=== PATIENT | female | born 1995 | race Caucasian/White ===

== ENCOUNTER 2018-07-19 15:38 | Inpatient (IN) | payer BC ==
[2018-08-16] MEDS ORDERED: DINOPROSTONE 10 MG VAGINAL INSERT.SR PV ONE (20:00)
[2018-08-16] MEDS ORDERED: DINOPROSTONE 10 MG VAGINAL INSERT.SR ONE (20:08)
[2018-08-16 20:24] LABS: ABSOLUTE LYMPHOCYTES (AUTO) 1.4 10^3/uL (0.5-4.7); ABSOLUTE MONOCYTES (AUTO) 0.5 10^3/uL (0.1-1.4); ABSOLUTE NEUT (AUTO) 8.6 10^3/uL (1.7-8.2); BASOPHILS % (AUTO) 0.2 % (0-2); EOSINOPHILS % (AUTO) 0.1 % (0-6); HEMATOCRIT 34.4 % (36.0-47.0); HEMOGLOBIN 11.6 g/dL (12.0-15.5); MEAN CORPUSCULAR HEMOGLOBIN 31.8 pg (27.0-33.4); MEAN CORPUSCULAR HGB CONC 33.7 g/dL (32.0-36.0); MEAN CORPUSCULAR VOLUME 95 fl (80-97); MONOCYTES % (AUTO) 4.5 % (3-13); PLATELET COUNT 165 10^3/uL (150-450); RED BLOOD COUNT 3.64 10^6/uL (3.72-5.28); RED CELL DISTRIBUTION WIDTH 18.2 % (11.5-14.0); SEGMENTED NEUTROPHILS % (AUTO) 82.2 % (42-78); TOTAL CELLS COUNTED % (AUTO) 100 %; WHITE BLOOD COUNT 10.4 10^3/uL (4.0-10.5)
[2018-08-16 22:08] LABS: APPEARANCE,URINE CLEAR; BILIRUBIN,URINE NEGATIVE (NEGATIVE); COLOR,URINE STRAW; GLUCOSE, URINE NEGATIVE (NEGATIVE); KETONES,URINE NEGATIVE (NEGATIVE); LEUKOCYTE ESTERASE,URINE NEGATIVE (NEGATIVE); NITRITE,URINE NEGATIVE (NEGATIVE); PROTEIN,URINE NEGATIVE (NEGATIVE); URINE SPECIFIC GRAVITY 1.005; UROBILINOGEN,URINE NEGATIVE mg/dL (<2.0)
[2018-08-16 22:28] LABS: URINE AMPHETAMINES SCREEN NEGATIVE; URINE BARBITURATES SCREEN NEGATIVE; URINE BENZODIAZEPINES SCREEN NEGATIVE; URINE COCAINE SCREEN NEGATIVE; URINE MARIJUANA (THC) SCREEN NEGATIVE; URINE METHADONE SCREEN NEGATIVE; URINE PHENCYCLIDINE SCREEN NEGATIVE
[2018-08-17] MEDS ORDERED: RINGERS SOLUTION,LACTATED 1,000 ML IV PRN (06:43)
--- NOTE | 2018-08-17 09:12 | L&D Progress Notes ---
PROGRESS NOTES Datetime Report Generated by CPN: 08/17/2018 09:12 PROGRESS NOTE Impression Other: IUP @ 41w Procedures: Sterile Vag Exam Plan: Continue Present Management; Induction Informed Consent Obtained: Vaginal Delivery; Induction of Labor; Risks, Benefits and Alternatives Discussed Vital Signs : Reviewed; Within Normal Limits Comment: S: pt. comfortable after cervidil, reports mild cramping O: VSS, Cat I tracing, cervix as stated A: IUP @ 41w IOL for post term-stable, progressing P: continue induction of labor, will start pitocin at 0930. Reviewed plan of care with patient and who asked questions and verbalized understanding. LAST VAGINAL EXAM-NURSING Dilitation: 2.5 Dilitation: 1.5 Effacement: 70 Effacement: 70 Station: -1 Station: -3 MEMBRANES Membranes: Intact FETUS A Monitoring: External US Variability: Moderate 6-25bpm Decelerations: None FHR Category: Category I SIGNATURE SIGNATURE: [id number] Assignment: Cleopatra Garcia, MD Signature: with User ID: [email or web address] : with User ID: [email or web address]
[2018-08-17] MEDS ORDERED: OXYTOCIN/NORMAL SALINE 20 UNIT/1,000 ML RTUINJ IV PRN ×2 (09:30→19:08)
[2018-08-17] MEDS ORDERED: OXYTOCIN/NORMAL SALINE 20 UNIT/1,000 ML RTUINJ ONE (09:33)
--- NOTE | 2018-08-17 14:01 | Admission Physical ---
Datetime Report Generated by CPN: 08/17/2018 14:00 CURRENT ADMISSION Hx Assessment: The History has been Reviewed and is Current Chief Complaint: Scheduled Induction of Labor Indication for Induction: Post Dates Admit Impression : Postterm, Intrauterine Admit Plan: Admit to Unit; Initiate Labor Induction Protocol ALLERGIES Medication Allergies: No Medication Allergies: No Known Allergies (08/16/2018) Latex: No Latex Allergies OBSTETRICAL HISTORY EDC: 08/10/2018 00:00 : 1 Para: 0 Term: 0 : 0 SAB: 0 IAB: 0 Ectopic: 0 Livin Cesareans: 0 VBACs: 0 Multiple Births: 0 Gestational Diabetes: No Rh Sensitization: No Incompetent Cervix: No SEAN: No Infertility: No ART Treatment: No Uterine Anomaly: No IUGR: No Hx Previous C/S: No Macrosomia: No Hx Loss/Stillborn: No PIH: No Hx : No Placenta Previa/Abruption: No Depression/PP Depression: No PTL/PROM: No Post Hemorrhage: No Current Procedures: Ultrasound; NST Obstetrical History Comments: G1- current SEE RECORDS Alcohol: No Marijuana : No Cocaine: No Other Illicit Drugs: No Cigarettes: Never Smoker. [id number] MEDICAL HISTORY Diabetes: No Blood Transfusion: No Pulmonary Disease (Asthma, TB): No Breast Disease: No Hypertension: No Data Conversion Operator Surgery: No Heart Disease: No Hosp/Surgery: Yes Autoimmune Disorder: No Anesthetic Complications: No Kidney Disease: No Abnormal Pap Smear: No Neuro/Epilepsy: No Psychiatric Disorders: No Other Medical Diseases: No Hepatitis/Liver Disease: No Significant Family History: No Varicosities/Phlebitis: No Trauma/Violence : No Thyroid Dysfunction: No Medical History Comments: open heart surgery at 4 days old INFECTIOUS HISTORY Gonorrhea: No Genital Herpes: No Chlamydia: No Tuberculosis: No Syphilis: No Hepatitis: No HIV/AIDS Exposure: No Rash or Viral Illness: No HPV: No PHYSICAL EXAM General: Normal HEENT: Deferred Neurologic: Deferred Thyroid: Deferred Heart: Normal Lungs: Normal Breast: Deferred Back: Deferred Abdomen: Normal Genitourinary Exam: Normal Extremities: Normal DTRs: Normal Pelvic Type: Adequate Vital Signs: Reviewed; Within Normal Limits VAGINAL EXAM Contraction Comments: 2-4 MEMBRANES Membranes: Intact FETUS A EGA: 41.0 Monitoring: External US FHR Category: Category I Presentation: Vertex Admit Comment: 22yo @ 41wga admitted into L_D last night for IOL post term. 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 Pt is Rubella immune, GBs neg, blood type A positive. Pt. had cervidil last night and was ready for pitocin this am. Pitocin was started at that time. Pt. tolerating induction without problems and denies any concerns at this time. PLANS FOR LABOR AND DELIVERY Labor and Delivery: None Pain Management: Natural Feeding Preference: Formula Benefit of Breast Feed Discussed: Yes Circumcision: N/A INFORMED CONSENT Informed Consent Obtained: Vaginal Delivery; Induction of Labor; Risks, Benefits and Alternatives Discussed Assignment: Cleopatra Garcia MD Signature: with User ID: Loretta : with User ID: [email or web address]
[2018-08-17] MEDS ORDERED: EPHEDRINE SULFATE INJ 50 MG/1 ML AMPULE ONE (16:18)
[2018-08-17] MEDS ORDERED: BUPIVACAINE HCL 0.5 % INJ/PF 30 ML SDV ONE (16:19)
[2018-08-17] MEDS ORDERED: FENTANYL/BUPIVACAINE/NS/PF 300 MCG/150 ML RTUINJ EPI ONE (16:19)
[2018-08-17] MEDS ORDERED: MISOPROSTOL 0.2 MG TABLET ONE (19:04)
[2018-08-17] MEDS ORDERED: LIDOCAINE 1% INJ-PF (10 MG/ML) 30 ML SDV ONE (19:04)
[2018-08-17] MEDS ORDERED: DIPH/PERTUSS(ACELL)/TETANUS VAC/PF 0.5 ML SYR (>=10YO) IM PRN (19:08)
[2018-08-17] MEDS ORDERED: PROMETHAZINE HCL 25 MG TABLET PO PRN (19:08)
[2018-08-17] MEDS ORDERED: ZOLPIDEM TARTRATE 5 MG TABLET PO PRN (19:08)
[2018-08-17] MEDS ORDERED: NA PHOS,M-B/NA PHOS,DI-BA (ADULT) 133 ML ENEMA PR PRN (19:08)
[2018-08-17] MEDS ORDERED: BENZOCAINE/MENTHOL AEROSOL SPRAY 56 ML TOP PRN (19:08)
[2018-08-17] MEDS ORDERED: MAGNESIUM HYDROXIDE SUSP 30 ML UDCUP PO PRN (19:08)
[2018-08-17] MEDS ORDERED: ACETAMINOPHEN 650 MG SUPP.RECT PR PRN (19:08)
[2018-08-17] MEDS ORDERED: PSEUDOEPHEDRINE HCL 30 MG TABLET PO PRN (19:08)
[2018-08-17] MEDS ORDERED: DIBUCAINE 1% OINTMENT 28 GM TP PRN (19:08)
[2018-08-17] MEDS ORDERED: ACETAMINOPHEN WITH CODEINE #3 TABLET PO PRN ×2 (19:08)
[2018-08-17] MEDS ORDERED: DIPHENHYDRAMINE HCL 25 MG CAPSULE PO PRN (19:08)
[2018-08-17] MEDS ORDERED: MEASLES,MUMPS&RUBELLA VACC/PF 0.5 ML VIAL SUBCUT PRN (19:08)
[2018-08-17] MEDS ORDERED: PROMETHAZINE HCL INJ 25 MG/1 ML VIAL IV PRN (19:08)
[2018-08-17] MEDS ORDERED: PROMETHAZINE HCL 25 MG SUPP.RECT PR PRN (19:08)
[2018-08-17] MEDS ORDERED: GLYCERIN/WITCH HAZEL LEAF 1 EACH MED..PAD TP PRN (19:08)
[2018-08-17] MEDS ORDERED: IBUPROFEN 800 MG TABLET ONE (21:44)
[2018-08-17] MEDS: IBUPROFEN 800 MG TABLET PO SCH (21:46)
--- NOTE | 2018-08-17 22:23 | Delivery Summary ---
Del Sum A-C Datetime Report Generated by CPN: 08/17/2018 22:22 DELIVERY PERSONNEL DELIVERY PERSONNEL: [id number] Delivery Doctor:: Cleopatra Garcia MD Labor and Delivery Nurse:: Yi Esqueda, body design checker Nurse:: Leigh Ann Epstein, CLITFON Counter Intelligence Agent/OFFICE CLERK ASSISTANT: Jed Ertel, OFFICE CLERK ASSISTANT MATERNAL INFORMATION Delivery Anesthesia: Epidural Medications After Delivery: Pitocin Drip 20 Units/1000ml NSS Maternal Complications: None LABOR SUMMARY EDC: 08/10/2018 00:00 No. Babies in Womb: 1 Attempted: No Labor Anesthesia: Epidural LABOR INFORMATION Reason for Induction: Post Dates Onset of Labor: 08/17/2018 16:17 Complete Dilatation: 08/17/2018 18:57 Cervical Ripening Agents: Cervidil Oxytocin: Induction Group B Beta Strep: NEGATIVE Antibiotics # of Doses: N/A Antibiotics Time of Last Dose: N/A Name of Antibiotic Given: N/A Steroids Given: None Reason Steroids Not Administered: Not Applicable MEMBRANES Membranes Rupture Method: Spontaneous Rupture of Membranes: 08/17/2018 15:07 Length of Rupture (hr): 4.82 Amniotic Fluid Color: Clear Amniotic Fluid Amount: Small Amniotic Fluid Odor: Normal STAGES OF LABOR Stage 1 hr: 2 Stage 1 min: 40 Stage 2 hr: 0 Stage 2 min: 59 Stage 3 hr: 0 Stage 3 min: 5 Total Time in Labor hr: 3 Total Time in Labor min: 44 VAGINAL DELIVERY Episiotomy: None Laceration #1: Vaginal Laceration Extension #1: N/A Laceration #2: Vaginal Laceration Extension #2: N/A Laceration #3: None Laceration Extension #3: N/A Laceration Repair: Yes Laceration Repair Note: repair with 3-0 chromic suture Sponge Count Correct: Yes; Vaginal Sweep Performed Sharps Count Correct: Yes CSECTION DELIVERY Primary Indication: N/A Secondary Indication: N/A CSection Incidence: N/A Labor: N/A Elective: N/A CSection Incision: N/A BABY A INFORMATION Delivery Date/Time: 08/17/2018 19:56 Method of Delivery: Vaginal Born in Route : No : N/A Forceps: N/A Vacuum Extraction: N/A Shoulder Dystocia : No PRESENTATION/POSITION BABY A Presentation: Cephalic Cephalic Presentation: Vertex Vertex Position: Right Occipital Anterior Breech Presentation: N/A PLACENTA INFORMATION BABY A Placenta Delivery Time : 08/17/2018 20:01 Placenta Method of Delivery: Spontaneous Placenta Status: Delivered SCORES BABY A Heart Rate 1 min: >100 bpm Resp Effort 1 min: Good Cry Reflex Irritability 1 min: Cough or Sneeze or Pulls Away Muscle Tone 1 min: Active Motion Color 1 min: Blue/Pale SCORE 1 MIN: 8 Heart Rate 5 min: >100 bpm Resp Effort 5 min: Good Cry Reflex Irritability 5 min: Cough or Sneeze or Pulls Away Muscle Tone 5 min: Active Motion Color 5 min: Body [place], Extremities Blue SCORE 5 MIN: 9 INFORMATION BABY A Gestational Age at Delivery: 41.0 Gestational Status: Late Term- 41- 41.6 Weeks Outcome : Liveborn Condition : Stable Sex: Female IDENTIFICATION BABY A Verification Date/Time: 08/17/2018 20:10 ID Band Number: [id number] Mother's Name Verified: Yes RN Verifying : CBeatrice Esqueda, RN R. Hirael, OFFICE CLERK ASSISTANT WEIGHT/LENGTH BABY A Infant Birthweight (gm): 3407 Infant Weight (lb): 7 Infant Weight (oz): 8 Infant Length (in): 20.00 Infant Length (cm): 50.80 CORD INFORMATION BABY A No. Cord Vessels: 3 Nuchal Cord : N/A Nuchal Cord- Other: left compound hand Cord Blood Taken: Yes-For Storage (Mom's Blood type +) Suction: Mouth; Nose ASSESSMENT BABY A Complications: None Physical Findings at Delivery: Within Normal Limits Skin to Skin: Yes Transferred To: Remains with Mother BABY B INFORMATION : N/A SIGNATURES Signature: with User ID: Donald
[2018-08-17] MEDS: FAMOTIDINE 20 MG TABLET PO SCH (23:06)
[2018-08-18] MEDS: IBUPROFEN 800 MG TABLET PO SCH ×3 (05:19→22:37)
[2018-08-18 08:00] LABS: HEMATOCRIT 30.6 % (36.0-47.0); HEMOGLOBIN 10.3 g/dL (12.0-15.5); MEAN CORPUSCULAR HGB CONC 33.8 g/dL (32.0-36.0); MEAN CORPUSCULAR VOLUME 95 fl (80-97); PLATELET COUNT 160 10^3/uL (150-450); RED BLOOD COUNT 3.23 10^6/uL (3.72-5.28); WHITE BLOOD COUNT 12.8 10^3/uL (4.0-10.5)
[2018-08-18] MEDS: DOCUSATE SODIUM 100 MG CAPSULE PO SCH ×2 (09:44→18:55)
[2018-08-18] MEDS: PRENATAL VITAMIN W DHA CAPSULE PO SCH (09:44)
[2018-08-18] MEDS: FAMOTIDINE 20 MG TABLET PO SCH ×2 (09:44→22:37)
[2018-08-18] MEDS: SENNOSIDES/DOCUSATE 8.6-50 MG 1 EACH TABLET PO SCH (09:44)
[2018-08-18] MEDS: FERROUS SULFATE 325 MG TABLET PO SCH ×2 (09:44→18:55)
--- NOTE | 2018-08-18 09:50 | PDOC PROGRESS REPORT ---
Subjective-OB Progress Note for:: 08/18/18 Physical Exam (OB) Vital Signs: Temp Pulse Resp BP Pulse Ox 98.1 F 75 17 106/62 98 08/18/18 07:56 08/18/18 07:56 08/18/18 07:56 08/18/18 07:56 08/18/18 07:56 Intake & Output 08/17/18 08/18/18 08/19/18 06:59 06:59 06:59 Weight 71.8 kg - Lochia Lochia Amount: Small 10-25 ml - Abdomen Description: Soft, Round Hernia Present: No Bowel Sounds: Normoactive Flatus Presence: Present Stool: No Objective-Diagnostic Laboratory: 08/18/18 07:17 08/18/18 07:17 WBC 12.8 H RBC 3.23 L Hgb 10.3 L Hct 30.6 L MCV 95 MCH 32.0 MCHC 33.8 RDW 18.0 H Plt Count 160
[2018-08-19] MEDS: IBUPROFEN 800 MG TABLET PO SCH (05:22)
[2018-08-19 08:41] VITALS: BP 109/63
[2018-08-19] MEDS: DOCUSATE SODIUM 100 MG CAPSULE PO SCH (09:36)
[2018-08-19] MEDS: SENNOSIDES/DOCUSATE 8.6-50 MG 1 EACH TABLET PO SCH (09:36)
[2018-08-19] MEDS: PRENATAL VITAMIN W DHA CAPSULE PO SCH (09:36)
[2018-08-19] MEDS: FAMOTIDINE 20 MG TABLET PO SCH (09:36)
[2018-08-19] MEDS: FERROUS SULFATE 325 MG TABLET PO SCH (09:36)
--- NOTE | 2018-08-19 10:13 | PDOC DISCHARGE SUMMARY ---
Final Diagnosis Discharge Date: 08/19/18 - Final Diagnosis (1) Delivery normal Is this a current diagnosis for this admission?: Yes (2) History of transposition of great vessels Is this a current diagnosis for this admission?: Yes Discharge Data - Discharge Medication Home Medications: 95/Iron Fum/Folic/Dha [ + Dha Combo Pack] 1 each PO DAILY 08/16/18 Reason(s) for Admission: Induction of Labor Procedures: NST Intrapartum Procedure(s): Spontaneous Vaginal Delivery Complication(s): Laceration-Vaginal Laceration-Degree: 1st - Diagnosis Test Laboratory: Temp Pulse Resp BP Pulse Ox 98.4 F 82 17 109/63 99 08/19/18 08:06 08/19/18 08:06 08/19/18 08:06 08/19/18 08:06 08/19/18 08:06 08/16/18 08/16/18 08/18/18 19:22 20:10 07:17 RBC 3.64 L 3.23 L Hgb 11.6 L 10.3 L Hct 34.4 L 30.6 L Urine Opiates Screen NEGATIVE - Discharge information/Instructions Discharge Activity: Balance Activity w/Rest, Pelvic Rest Discharge Diet: Regular Disposition: HOME, SELF-CARE Follow up with: [facility] in: 3, Weeks
== END 2018-08-19 14:22 | disposition home or self-care (01) | DRG 807 ==
LOC: LR 08-16 19:12 → 2S 08-17 21:55
PROVIDERS: ADMIT Obstetrics & Gynecology; ATTEND Obstetrics & Gynecology
PROC: 10E0XZZ Delivery of Products of Conception, External Approach (ICD-10-PCS; principal; 2018-08-17)
PROC: 3E0P7VZ Introduction of Hormone into Female Reproductive, Via Natural or Artificial Opening (ICD-10-PCS; 2018-08-17)
PROC: 3E033VJ Introduction of Other Hormone into Peripheral Vein, Percutaneous Approach (ICD-10-PCS; 2018-08-17)
PROC: 4A1HXCZ Monitoring of Products of Conception, Cardiac Rate, External Approach (ICD-10-PCS; 2018-08-17)
DX: O48.0 Post-term pregnancy (principal); Z37.0 Single live birth; O32.6XX0 Maternal care for compound presentation, not applicable or unspecified; Z3A.41 41 weeks gestation of pregnancy; Z87.74 Personal history of (corrected) congenital malformations of heart and circulatory system
CPT/HCPCS: 36415; 80307; 81005; 85025; 85027; 86592; 86850; 86900; 86901; J2590; J3010; J3490

== ENCOUNTER 2018-08-20 16:45 | Emergency (ER) | payer BC ==
[2018-08-20] MEDS ORDERED: RINGERS SOLUTION,LACTATED 1,000 ML IV ONE (17:36)
--- NOTE | 2018-08-20 17:37 | ER Document Report ---
ED Medical Screen (RME) - General Chief Complaint: Shortness Of Breath Stated Complaint: DIZZY/HEADACHE Time Seen by Provider: 08/20/18 17:35 Notes: 22 years old female delivered a baby 3 days ago, presents today with general malaise weakness tiredness and dizziness. Not breast-feeding, undergoing some depression. TRAVEL OUTSIDE OF THE [place] IN LAST 30 DAYS: No - Related Data Allergies/Adverse Reactions: No Known Allergies Allergy (Verified 08/20/18 16:45) Past Medical History - Social History Frequency of alcohol use: None Drug Abuse: None Renal/ Medical History: Denies: Hx Peritoneal Dialysis Past Surgical History: Reports: Hx Cardiac Surgery - as an ( open heart) - Immunizations Immunizations up to date: Yes Hx Diphtheria, Pertussis, Tetanus Vaccination: No Physical Exam - Vital signs Vitals: Temp Pulse Resp BP Pulse Ox 99.2 F 82 14 137/74 H 100 08/20/18 16:47 08/20/18 16:47 08/20/18 16:47 08/20/18 16:47 08/20/18 16:47 Course - Vital Signs Vital signs: Temp Pulse Resp BP Pulse Ox 99.2 F 82 14 137/74 H 100 08/20/18 16:47 08/20/18 16:47 08/20/18 16:47 08/20/18 16:47 08/20/18 16:47 Doctor's Discharge - Discharge Referrals: JANKI SMALLWOOD MD [Primary Care Provider] - Follow up as needed
[2018-08-20 18:30] LABS: ABSOLUTE EOSINOPHILS # (AUTO) 0.1 10^3/uL (0.0-0.6); ABSOLUTE LYMPHOCYTES (AUTO) 1.6 10^3/uL (0.5-4.7); ABSOLUTE MONOCYTES (AUTO) 0.4 10^3/uL (0.1-1.4); ABSOLUTE NEUT (AUTO) 7.6 10^3/uL (1.7-8.2); BASOPHILS % (AUTO) 0.4 % (0-2); EOSINOPHILS % (AUTO) 1.2 % (0-6); HEMATOCRIT 38.3 % (36.0-47.0); LYMPHOCYTES % (AUTO) 16.5 % (13-45); MEAN CORPUSCULAR HEMOGLOBIN 31.7 pg (27.0-33.4); MEAN CORPUSCULAR HGB CONC 33.3 g/dL (32.0-36.0); MEAN CORPUSCULAR VOLUME 95 fl (80-97); MONOCYTES % (AUTO) 4.4 % (3-13); PLATELET COUNT 217 10^3/uL (150-450); RED BLOOD COUNT 4.02 10^6/uL (3.72-5.28); RED CELL DISTRIBUTION WIDTH 18.9 % (11.5-14.0); SEGMENTED NEUTROPHILS % (AUTO) 77.5 % (42-78); TOTAL CELLS COUNTED % (AUTO) 100 %; WHITE BLOOD COUNT 9.8 10^3/uL (4.0-10.5)
[2018-08-20 18:37] LABS: HEMOGLOBIN 12.8 g/dL (12.0-15.5)
--- NOTE | 2018-08-20 19:05 | ER Document Report ---
ED General - General Chief Complaint: Shortness Of Breath Stated Complaint: DIZZY/HEADACHE Time Seen by Provider: 08/20/18 17:35 Notes: Patient is a 22-year-old female who presents emergency department with a chief complaint of a headache, dizziness, feeling weak, shortness of breath on exertion. She is 3 days and was anemic during her . She states she is still taking her iron pills. Her delivery was a vaginal delivery and she had an epidural. When asked if she has had this mold dresser, she said a little bit. She states her headache really is not that bad. TRAVEL OUTSIDE OF THE [place] IN LAST 30 DAYS: No - Related Data Allergies/Adverse Reactions: No Known Allergies Allergy (Verified 08/20/18 16:45) Past Medical History - Social History Smoking Status: Never Smoker Frequency of alcohol use: None Drug Abuse: None Family History: Reviewed & Not Pertinent Patient has suicidal ideation: No Patient has homicidal ideation: No Renal/ Medical History: Denies: Hx Peritoneal Dialysis Past Surgical History: Reports: Hx Cardiac Surgery - as an ( open heart) - Immunizations Immunizations up to date: Yes Hx Diphtheria, Pertussis, Tetanus Vaccination: No Review of Systems - Review of Systems Notes: REVIEW OF SYSTEMS: CONSTITUTIONAL : Denies recent illness. Denies recent unintentional weight loss. Denies fever, chills, or sweats. EENT: Denies eye, ear, throat, or mouth pain, discharge, or symptoms. Denies nasal or sinus congestion. CARDIOVASCULAR: Denies chest pain. RESPIRATORY: Denies shortness of breath, cough, congestion, difficulty breathing , or wheezing. GASTROINTESTINAL: Denies nausea, vomiting, and diarrhea. Denies abdominal pain. Denies constipation. GENITOURINARY: Denies difficulty urinating, burning, blood in urine, urgency or frequency. MUSCULOSKELETAL: Denies neck and back pain. Denies joint pain or swelling. SKIN: Denies rash, itchiness, or lesions HEMATOLOGIC : Denies easy bruising or bleeding. LYMPHATIC: Denies swollen, painful, enlarged glands. NEUROLOGICAL: See HPI PSYCHIATRIC: Denies stress, anxiety, alteration in sleep patterns, or depression. All other systems reviewed and negative. Physical Exam - Vital signs Vitals: Temp Pulse Resp BP Pulse Ox 99.2 F 82 14 137/74 H 100 08/20/18 16:47 08/20/18 16:47 08/20/18 16:47 08/20/18 16:47 08/20/18 16:47 - Notes Notes: PHYSICAL EXAMINATION: GENERAL: Appears well, healthy, well-nourished, no acute distress. HEAD: Normocephalic, atraumatic. EYES: PERRL, conjunctiva normal, all extraocular movements intact, sclera nonicteric ENT: Moist mucous membranes. NECK: Supple, no noticeable swelling, redness, rash. Normal range of motion. LUNGS: Equal breath sounds bilaterally and clear to auscultation. No wheezes rales or rhonchi. CARDIOVASCULAR: Grade 2 holosystolic murmur, regular rate, regular rhythm. Radial pulses 2+, normal. ABDOMEN: Normoactive bowel sounds. Soft, nontender, no guarding, no rebound tenderness, and no masses palpated. EXTREMITIES: Normal strength and range of motion, no pitting or edema. No cyanosis. NEUROLOGICAL: Moves all extremities upon command. Strength 5/5 in all extremities. PSYCH: Normal mood, normal affect. SKIN: Warm, dry. No rash, lesions, ulcerations noted. Normal skin turgor. WAREHOUSE RECEIVING CLERK: Fundus 3 finger breaths below umbilicus. Course - Re-evaluation Re-evalutation: Patient is a 22-year-old female who presents to the emergency department with complaints of weakness and headache. She is 3 days . She had no complications during her delivery. Today she was up and around shopping for an hour. She states that maybe she "overdid it." Her urinalysis is unremarkable. I do not see protein in her urine, therefore I do not think she has preeclampsia. She had an epidural during her delivery, but she says this is not a severe headache that she has. I do not suspect a post epidural headache at this time due to her complaints. Her blood sugar was 77 on labs, but her labs were drawn from her IV in which she had IV fluids running. I gave her 2 cartons of grape juice to bring her blood sugar, just in case it was truly low. After 1 L of normal saline, receiving Tylenol, and her drinking the grape juice, she stated she is better. Verbal discharge instructions were given to the patient. Verbal discharge instructions were given to the patient. She verbalized understanding. The patient is stable for discharge. - Vital Signs Vital signs: Temp Pulse Resp BP Pulse Ox 99.2 F 75 20 116/68 100 08/20/18 21:21 08/20/18 21:21 08/20/18 21:21 08/20/18 21:21 08/20/18 21:21 - Laboratory Result Diagrams: 08/20/18 18:09 08/20/18 19:10 Laboratory results interpreted by me: 08/20/18 08/20/18 08/20/18 18:09 19:10 20:00 RDW 18.9 H Chloride 109 H Carbon Dioxide 20 L Creatinine 0.48 L Glucose 71 L Total Protein 6.0 L Urine Blood MODERATE H Ur Leukocyte Esterase TRACE H Discharge - Discharge Clinical Impression: Weakness Condition: Stable Disposition: HOME, SELF-CARE Additional Instructions: You have been seen in the emergency department for weakness, headache, and dizziness. Your labs show that your anemia improved. Please make sure you stay well hydrated, eat well, and get plenty of rest. Sleep when the baby sleeps. Make sure you take it easy for the next month. Please follow-up with your WAREHOUSE RECEIVING CLERK on Thursday. If you develop shortness of breath, have worsening weakness, headache, or dizziness, or have any symptoms that are worrisome to you , please return to the emergency department. Referrals: ADARSH ADAMS DO [ACTIVE STAFF] - Follow up as needed
[2018-08-20] MEDS ORDERED: IBUPROFEN 600 MG TABLET PO ONE (19:27)
[2018-08-20] MEDS ORDERED: ACETAMINOPHEN 325 MG TABLET PO ONE (19:27)
[2018-08-20 19:47] LABS: ALANINE AMINOTRANSFERASE 20 U/L (9-52); ALBUMIN 3.5 g/dL (3.5-5.0); ALKALINE PHOSPHATASE 113 U/L (38-126); ANION GAP 9 (5-19); ASPARTATE AMINO TRANSFERASE 34 U/L (14-36); BILIRUBIN,DIRECT 0.2 mg/dL (0.0-0.4); BILIRUBIN,TOTAL 0.6 mg/dL (0.2-1.3); BLOOD UREA NITROGEN 7 mg/dL (7-20); CALCIUM 9.5 mg/dL (8.4-10.2); CARBON DIOXIDE 20 mmol/L (22-30); CHLORIDE 109 mmol/L (98-107); GLUCOSE 71 mg/dL (75-110); POTASSIUM 3.8 mmol/L (3.6-5.0); SODIUM 137.9 mmol/L (137-145)
[2018-08-20 20:27] LABS: APPEARANCE,URINE CLEAR; BILIRUBIN,URINE NEGATIVE (NEGATIVE); COLOR,URINE COLORLESS; GLUCOSE, URINE NEGATIVE (NEGATIVE); KETONES,URINE NEGATIVE (NEGATIVE); LEUKOCYTE ESTERASE,URINE TRACE (NEGATIVE); NITRITE,URINE NEGATIVE (NEGATIVE); PROTEIN,URINE NEGATIVE (NEGATIVE); URINE SPECIFIC GRAVITY 1.002; UROBILINOGEN,URINE NEGATIVE mg/dL (<2.0)
[2018-08-20 21:22] VITALS: BP 116/68
== END 2018-08-20 21:20 | disposition home or self-care (01) ==
LOC: ER 16:45
DX: O90.9 Complication of the puerperium, unspecified (principal); R06.02 Shortness of breath; R53.1 Weakness
CPT/HCPCS: 99285; 96360; 96361; 36415; 85025; 80053; 81001; J7120